=== PATIENT | female | born 1945 | race Caucasian/White ===

== ENCOUNTER 2023-08-14 12:24 | Outpatient (CLI) | payer OTHER | END 2023-08-14 12:30 | disposition home or self-care (01) | LOC: TOM 12:24 | PROVIDERS: ATTEND Orthopaedic Surgery | DX: S42.222P 2-part displaced fracture of surgical neck of left humerus, subsequent encounter for fracture with malunion (principal); M25.512 Pain in left shoulder ==

== ENCOUNTER → 2023-08-18 13:47 | Outpatient (CLI) | payer OTHER | END | disposition home or self-care (01) | LOC: NUCLEAR 13:15 | PROVIDERS: ATTEND Internal Medicine | DX: M81.0 Age-related osteoporosis without current pathological fracture (principal) ==